=== PATIENT | male | born 1945 | race Caucasian/White ===

== ENCOUNTER 2017-08-15 16:31 | Emergency (ER) | payer OTHER ==
[~2017-08-15] VITALS: Ht 180.3 cm; Wt 81.7 kg
[~2017-08-15 16:31] MED LIST: TESTIM5 GM TD
--- NOTE | 2017-08-16 09:56 | EKG ---
[facility] [address] [facility] [place], [place] [address] Signed Normal sinus rhythm Normal ECG No previous ECGs available Confirmed by JULIO ATKINSON MD ([id number]) on 08/16/2017 9:56:24 AM Electronically Signed By: JULIO ATKINSON MD 08/16/17 0956 PATIENT NAME: ALEJANDRO BOWERS MARAL Electrocardiogram DATE OF : 49 PHYSICIAN: JULIO ATKINSON MD REPORT #: [id number] REPORT IS CONFIDENTIAL AND NOT TO BE RELEASED WITHOUT AUTHORIZATION
== END 2017-08-15 19:26 | disposition home or self-care (01) ==
LOC: ED 16:31
DX: R07.89 Other chest pain (principal); I10 Essential (primary) hypertension; Z88.1 Allergy status to other antibiotic agents; Z91.010 Allergy to peanuts; Z79.899 Other long term (current) drug therapy
CPT/HCPCS: 71020; 80053; 84484; 85025; 93005; 93010; 99284

== ENCOUNTER 2023-10-25 09:18 | Emergency (ER) | payer OTHER, MEDICARE ==
[~2023-10-25] VITALS: Ht 348 cm; Wt 77.1 kg
[~2023-10-25 09:18] MED LIST changes: +ACYCLOVIR800 MG PO; +CEFPODOXIME PR200 MG PO; +DEXEDRINE10 MG PO; +PREDNISONE20 MG PO
--- OUTSIDE RECORDS SUMMARY | 2023-10-25 09:24 | XMS ---
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 Carter has no Care Guidelines for this patient. Ivan VISIT COUNT (12 MO.) 2 TERRELL Gall[facility] Sindi Pickard (Kendy Lrary) TOTAL 3 NOTE: Visits indicate total known visits. ED/C VISIT TRACKING (12 MO.) 10/25/2023 09:20 [facility] [place] TYPE: Emergency COMPLAINT: - ANEMIA [facility]23 09[facility]: Emergency DIAGNOSES: - ST elevation (STEMI) myocardial infarction of unspecified site - Chest Pain - STEMI 10/21/2023 08:09 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 - Essential (primary) hypertension - Other chest pain - Other mcfp (current) drug therapy - ST elevation (STEMI) myocardial infarction involving other coronary artery of inferior wall INPATIENT VISIT TRACKING (12 MO.) 10/21/2023 09:27 [facility] TYPE: Intensive Care DIAGNOSES: - Atherosclerotic heart disease of [place] coronary artery without angina pectoris - prison (current) use of non-steroidal anti-inflammatories (NSAID) - Myelodysplastic syndrome, unspecified - ST elevation (STEMI) myocardial infarction of unspecified site [email or web address]
[2023-10-25] MEDS ORDERED: CLOPIDOGREL75 MG PO (09:44)
[2023-10-25] MEDS ORDERED: LIPITOR40 MG PO (09:45)
[2023-10-25] MEDS ORDERED: PROTONIX40 MG PO (09:45)
[2023-10-25] MEDS ORDERED: ADULT LOW DOSE81 MG PO (09:45)
[2023-10-25] MEDS ORDERED: METOPROLOL SUCC25 MG PO (09:46)
[2023-10-25 09:51] LABS: HEMOGLOBIN 7.7 g/dL (12.0-18.0)
[2023-10-25 09:54] LABS: HEMATOCRIT 25.6 % (35.0-50.0); MCH 23.6 (27-36); MCV 78.6 fl (81-99); PLATELET COUNT 73 K/uL (140-440); RBC 3.26 M/ul (4.3-5.7); RDW 44.1 (10.5-15.0)
[2023-10-25 10:07] LABS: ALBUMIN 3.2 g/dL (3.4-5.0); ALBUMIN/GLOBULIN RATIO 0.86 (1.1-2.4); BILIRUBIN, TOTAL 1.2 ng/dL (0.2-1.0); BUN/CREATININE RATIO 19.65 (6.0-28.6); CALCIUM 8.8 mg/dL (8.5-10.1); CREATININE, SERUM 1.17 mg/dL (0.70-1.30); PROTEIN, TOTAL 6.9 g/dL (6.4-8.2)
[2023-10-25 10:17] LABS: LYMPHOCYTES, MANUAL DIFF 62; MONOCYTES, MANUAL DIFF 2; NEUTROPHILS, MANUAL DIFF 36
[2023-10-25 11:12] LABS: ABO A
[2023-10-25 11:13] LABS: ANTIBODY SCREEN NEGATIVE; RH POSITIVE
[2023-10-25 11:27] LABS: ABO A; RH POSITIVE
[2023-10-25 11:35] VITALS: BP 166/88
[2023-10-25 16:50] LABS: IS CROSSMATCH COMPATIBLE
== END 2023-10-25 11:36 | disposition home or self-care (01) ==
LOC: ED 09:18
PROVIDERS: Emergency Medicine
DX: D46.9 Myelodysplastic syndrome, unspecified (principal); I10 Essential (primary) hypertension; Z88.1 Allergy status to other antibiotic agents; Z91.010 Allergy to peanuts; Z79.899 Other long term (current) drug therapy; Z79.82 Long term (current) use of aspirin; Z79.890 Hormone replacement therapy
CPT/HCPCS: 36415; 80053; 85025; 86850; 86900; 86901; 86922; 99283

== ENCOUNTER 2024-02-19 10:30 | Day surgery (SDC) | payer OTHER ==
[2024-02-17 10:14] VITALS: BP 144/88
[~2024-02-19] VITALS: Ht 177.8 cm; Wt 79.1 kg
[~2024-02-19 10:30] MED LIST changes: +ADULT LOW DOSE81 MG PO; +CLOPIDOGREL75 MG PO; +IBLOOD GLUCOSE TEST STRIP 1 EA TEST VI PRN; +LACTATED RINGER'S 1,000 ML IV SCH; +LIDOCAINE HCL 1% 5 ML SDV INJ ONE; +LIPITOR40 MG PO; +METOPROLOL SUCC25 MG PO; +PROTONIX40 MG PO; +ZOLOFT25 MG PO
[2024-02-19 10:57] LABS: BASOPHILS 0.3 % (0-2); BASOPHILS, ABSOLUTE 0 %; EOSINOPHILS 2.2 % (0-6); EOSINOPHILS, ABSOLUTE 0.1; HEMATOCRIT 53.4 % (35.0-50.0); HEMOGLOBIN 18.1 g/dL (12.0-18.0); LYMPHOCYTES 33.4 % (24-44); LYMPHOCYTES, ABSOLUTE 1.5; MCH 33.4 (27-36); MCHC 33.9 g/dl (30-36); MCV 98.6 fl (81-99); MONOCYTES 9.2 % (0-12); MONOCYTES, ABSOLUTE 0.4; NEUTROPHILS 54.9 % (39-80); NEUTROPHILS, ABSOLUTE 2.5; PLATELET COUNT 51 K/uL (140-440); RBC 5.41 M/ul (4.3-5.7); RDW 17.6 (10.5-15.0)
[2024-02-19 11:03] VITALS: BP 130/75
[2024-02-19 11:12] LABS: ALBUMIN 4.1 g/dL (3.4-5.0); ALBUMIN/GLOBULIN RATIO 1.14 (1.1-2.4); ANION GAP 12.8 (7-21); BILIRUBIN, TOTAL 0.8 ng/dL (0.2-1.0); BUN/CREATININE RATIO 19.49 (6.0-28.6); CALCIUM 9.1 mg/dL (8.5-10.1); CREATININE, SERUM 1.18 mg/dL (0.70-1.30); POTASSIUM 3.8 mmol/L (3.5-5.1); PROTEIN, TOTAL 7.7 g/dL (6.4-8.2)
[2024-02-19] MEDS ORDERED: LIDOCAINE HCL 2% 5 ML SDV ONE (11:55)
[2024-02-19] MEDS ORDERED: propofoL 200 MG/20 ML VIAL ONE (11:55)
[2024-02-19] MEDS ORDERED: fentaNYL citrate 100 MCG/2 ML VIAL ONE (11:55)
--- NOTE | 2024-02-19 12:24 | NUR ---
02/19/24 1224 Karoline Zepeda 1220-PATIENT ARRIVED TO PACU ON 6L MASK RR EVEN. PATIENT REACTIVE TO VERBAL STIMULI REMAINS VERY DROWSY PLACED ON RA. PATIENTS HOB ELEVATED SINUS DEISY HR 50'S DOZES BACK TO SLEEP
[2024-02-19 13:00] VITALS: BP 143/85
--- NOTE | 2024-02-20 07:00 | EKG ---
[facility] [address] [facility] [place] [address] Signed Sinus bradycardia Left axis deviation T wave abnormality, consider inferior ischemia Abnormal ECG When compared with ECG of 21-OCT-2023 08:14, ST no longer elevated in Inferior leads ST more depressed in Lateral leads Inverted T waves have replaced nonspecific T wave abnormality in Lateral leads Confirmed by Juli Pruett ([id number]) on 02/20/2024 7:00:34 AM Electronically Signed By: JULI PRUETT MD 02/20/24 0700 PATIENT NAME: ALEJANDRO BOWERS MARAL Electrocardiogram DATE OF : 49 PHYSICIAN: JULI PRUETT MD REPORT #: [id number] REPORT IS CONFIDENTIAL AND NOT TO BE RELEASED WITHOUT AUTHORIZATION
[2024-02-20 10:16] LABS: HAPTOGLOBIN 51 mg/dL (30-200)
--- NOTE | 2024-03-11 18:24 | PATH ---
[facility] [address] [facility] [place], [place] [address] Signed THIS IS AN ADDENDUM REPORT SPECIMEN(S): A BONE MARROW - CORE SPECIMEN(S): B BONE MARROW - ASPIRATION SPECIMEN(S): C COMP FLOW CYTOMETRY, BM EDTA CLINICAL HISTORY: 78-year-old male with MDS diagnosed 06/27/2023, status post four cycles azacitidine assess for response. Also history of low-grade BCL and WAHA. DIAGNOSIS SUMMARY: Peripheral blood - Thrombocytopenia with mild erythrocytosis. - No circulating blasts are identified. Bone marrow biopsy and aspiration: - Normocellular marrow, 20%, with less than 1% blasts. - Trilineage hematopoiesis with no significant dyspoiesis. - Mild megakaryocytic hypoplasia. - Decreased marrow iron stores with no ring sideroblasts. - See diagnostic comment. 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 He is status post treatment for MDS. No significant dyspoiesis is noted in this current specimen. Megakaryocytes are decreased in number. This might be treatment related. The history of ring sideroblasts (RS) is noted. No RS are noted in the specimen. These contradictory findings are confusing. No prior bone marrow is present in the [employer] database. A FISH panel for MDS is normal with no mutations. Pending studies at the time of this report include chromosome analysis, and a NGS panel for MDS. A reported history of unspecified low grade B-cell lymphoma is noted. No clonal populations are identified by flow cytometry. The immunohistochemistry staining pattern is unremarkable. No B-cell lymphoproliferative disorder is noted. JLP HISTORICAL SUMMARY: 78 yo male with no prior bone marrow exam reports in the [employer] database. The clinical history notes a 2022 diagnosis of MDS with multilineage dyspoiesis PATIENT NAME: ALEJANDRO BOWERS PATHOLOGY DATE OF : 49 REPORT #: [id number] PHYSICIAN: CRIS PATHOLOGY PCP: CHERYL CELIS MD REPORT IS CONFIDENTIAL AND NOT TO BE RELEASED WITHOUT AUTHORIZATION [facility] [address] [place], [place] [address] Signed treated with azacitidine. The last dose of azacitidine is reported as Jan 06, 2024. By report, cytogenetics noted a del 20q, and trisomy 8. By report, 10% of ring sideroblasts were noted. NGS mutation studies were reported for USAF1 mutation. 1.4% myeloblasts were noted by morphology (by report). In addition, there is a reported history of low grade B-cell lymphoma, type not specified by the clinical history. The clinician requests an assessment for response which is challenging without the prior bone marrow slides. He reportedly has taken Prednisone for WAHA. It is unclear whether he is still taking the prednisone. PERIPHERAL BLOOD: HEMOGRAM (02/19/2024): WBC 4.6 K/ul, RBC 5.41 M/ul, HGB 18.1 g/dl, HCT 53.4%, MCV 98.6 fl, MCH 33.4 pg, MCHC 33.9 g/dl, RDW 17.6%, PLT 51 K/ul, MPV 8.4 fl. AUTOMATED DIFFERENTIAL COUNT: Neutrophils 54.9%, lymphocytes 33.4%, monocytes 9.2%, eosinophils 2.2%, basophils 0.3%. The red blood cells are normocytic and normochromic with minimal aniso-poikilocytosis. The neutrophils are unremarkable. Lymphocytes are composed of small mature appearing forms. Platelets are decreased in number with no platelet clumping or RBC microangiopathic effect identified. No blasts are identified. BONE MARROW: ASPIRATE SMEARS/TOUCH IMPRINT: The aspirate smears are adequate for evaluation. Scattered erythroid precursors show adequate maturation with less than 2% dyspoietic cells. The myeloid precursors show full maturation with unremarkable morphology. There is no increase in blasts. Megakaryocytes are identified with a normal morphology. BONE MARROW DIFFERENTIAL COUNT (300 cells): Blasts less than 1%. promyelocytes 1%, myelocytes 5%, metamyelocytes/bands/segs 23%, erythroid precursors 32%, lymphocytes 30%, monocytes 6%, eosinophils 3%, plasma cells less than 1%. M:E ratio: 1:1 BONE MARROW CORE BIOPSY/ASPIRATE CLOT/CELL BLOCK: The aspirate clot section is mostly blood with scant small marrow spicules, sub-optimal for evaluation. The core biopsy is adequate for evaluation. The core biopsy demonstrates unremarkable trabecular bone. The cellularity is variable. The small focal marrow spicules in the clot section have a cellularity of 70%, but evaluation is limited by limited small marrow spicules. The core biopsy is a better specimen for analysis and has a lower cellularity, estimated at 20%. The erythroid precursors are within normal limits with essentially PATIENT NAME: ALEJANDRO BOWERS PATHOLOGY DATE OF : 49 REPORT #: [id number] PHYSICIAN: CRIS PATHOLOGY PCP: CHERYL CELIS MD REPORT IS CONFIDENTIAL AND NOT TO BE RELEASED WITHOUT AUTHORIZATION [address] [address] Signed unremarkable maturation. The myeloid precursors are unremarkable with no significant dyspoiesis. Blasts are not increased. Megakaryocytes appear decreased in number with a normal morphology. No granulomas, atypical lymphoid aggregates or foreign malignant cells are detected. SPECIAL STAINS (with adequate controls): - iron (aspirate smear): Decreased marrow iron stores. No ring sideroblasts are identified. - iron (cell block): Negative for iron by Prussian Blue stain. - PAS (block A1): Mildly decreased megakaryocytes with a normal morphology. IMMUNOHISTOCHEMISTRY STAINS (performed on block A1 with adequate controls). - CD34: Less than 1% - CD117: 1% - CD71: 35% - PAX5: 1% - CD3: 5%, no atypical morphology. FLOW CYTOMETRY: Bone marrow, flow cytometry: - No diagnostic abnormal populations are identified by flow cytometry. - See comment. COMMENT: While no diagnostic hematopoietic abnormality is detected in this study, correlation with clinical, morphologic, and genetic findings is recommended for full interpretation and to assess for disease processes not fully examined by flow cytometry analysis, including myelodysplastic syndrome or myeloproliferative neoplasm. FLOW CYTOMETRY ANALYSIS: FLOW DIFFERENTIAL (% Total CD45 vs. SSC gating): Myeloid 82%; Lymphoid 11%; Monocyte 3%; Dim CD45/Blast: 0.1%. Cell Count: 5.8 x 10*3/uL. POPULATION ANALYSIS: BLASTS: Analysis of the dim CD45 gate demonstrates 0.1% myeloblasts by CD34/CD117 and 0.2% hematogones. LYMPHOID CELLS: The lymphocyte gate comprises 11% of total events and includes 81% T-cells with a CD4:CD8 ratio of 2.6:1 and normal boudreaux T-cell antigen expression. 11% of lymphocytes are polyclonal B-cells with a kappa:lambda ratio of 2.2:1. The remainders are NK-cells. MYELOID CELLS: The myeloid population comprises 82% of the total events. No aberrant immunophenotypic expression is detected. MONOCYTES: The monocyte population comprises 3% of the total events. Monocytes PATIENT NAME: ALEJANDRO BOWERS PATHOLOGY DATE OF : 49 REPORT #: [id number] PHYSICIAN: CRIS PATHOLOGY PCP: CHERYL CELIS MD REPORT IS CONFIDENTIAL AND NOT TO BE RELEASED WITHOUT AUTHORIZATION [facility] [address] [facility] [place], [place] [address] Signed are not increased. No aberrant immunophenotypic expression is detected. PLASMA CELLS: 0.2% plasma cells are detected in the screening gate neg-dimCD45/CD38. Plasma cells are CD45 dim and positive for CD19. ANTIBODIES USED: KAPPA, LAMBDA, CD20, CD10, CD19, CD23, CD38, CD16, CD56, CD8, CD5, CD2, CD4, CD7, CD3, CD14, CD33, CD13, HLADR, CD34, CD117, CD15, CD45: TOTAL ANTIBODIES USED: 23. DKW FINAL DIAGNOSIS PERFORMED BY: Dion Glez MD, Feb 21 2024 1:58PM CYTOGENETICS: Insufficient specimen was submitted for chromosome analysis. FISH ANALYSIS: MDS FISH (fluorescence in situ hybridization) RESULT: Not Detected INTERPRETATION: 5q deletion/monosomy 5: Not detected. 7q deletion/monosomy 7: Not detected. Trisomy 8: Not detected. 20q deletion: Not detected. KMT2A (MLL) rearrangement: Not detected. Fluorescence in situ hybridization (FISH) analysis was performed using a specific set of probes for myelodysplastic syndrome (MDS). Counts for all probe signals were within the normal reference range. No evidence of deletion 5q, 7q or 20q or monosomy 5 or 7, trisomy 8, or KMT2A rearrangement was detected. This finding represents a NORMAL result. This analysis is limited to abnormalities detectable by the specific probes included in the study. FISH should be interpreted within the context of a full cytogenetic analysis and hematologic evaluation. ISCN: Probe Set Detail: EGR1/B6L816: nuc parminder 5p15.31(S8O654c6), 5q31(EGR1x2)[200] D3O232/CEP7: nuc parminder 7q31(F8B998v7),7q11.2q11.21(CEP7x2)[200] CEP8: nuc parmindre 8q11.1q11.21(CEP8x2)[300] F84X896: nuc parminder 20q12(V33K434m5)[300] KMT2A (MLL): nuc parminder 11q23(5'KMT2A,3'KMT2A)x2(5'KMT2A con 3'XOL2Zu6)[200] References: Joelle Chand (2013) Hematology Am Soc Hematol Educ Program 2013:504-10. PMID [id number] Rena Hernandez and Meg Lau, (2011) Hematology 16(3):131-8. PMID: 87742016 FISH Analysis Summary: PATIENT NAME: ALEJANDRO BOWERS PATHOLOGY DATE OF : 49 REPORT #: [id number] PHYSICIAN: CRIS PATHOLOGY PCP: CHERYL CELIS MD REPORT IS CONFIDENTIAL AND NOT TO BE RELEASED WITHOUT AUTHORIZATION [address] [place], [place] [address] Signed Nuclei Scored: 200-300 Scoring Method: Manual; CPT Code 74205 Number of Probe units: 4 Multiplex Cells analyzed: Interphase Probe sets: Chrom 8: ILYA 8, Chrom 20: K10O486, Chrom 5: EGR1, Chrom 5: R4V354, Chrom 7: CEN7, Chrom 7: Q9E3419, Chrom 11: KMT2A (MLL) 3', Chrom 11: KMT2A (MLL) 5 MOLECULAR / PCR: A NeoTYPE [facility] test for NGS CMML/MDS is pending. GROSS DESCRIPTION: Two specimens are received in two containers. A. The specimen, labeled and designated "Gawf, bone core," is received in formalin and consists of one bautista trabecular bone core fragment(s) measuring up to 1.5 cm in greatest dimension. The specimen is submitted in A1, following decalcification in Immunocal for 1.5 hours. B. The specimen, labeled and designated "Gawf, clot," is received in formalin and consists of a 1.8 x 1.2 x 0.4 cm aggregate of blood clot. It is submitted in cassette B1. TAP (under the direct supervision of a pathologist) The Gross Description was prepared using a voice recognition system. The report was reviewed for accuracy; however, sound-alike word errors, addition and/or deletions may occur. If there is any question about this report, please contact Client Services. ADDITIONAL NOTES: Immunohistochemical and/or in situ hybridization studies if performed in this case included appropriate positive controls that reacted as expected. This test was developed and its performance characteristics determined by [facility] It has not been cleared or approved by the U.S. Food and Drug Administration. The FDA has determined that such clearance or approval is not necessary. This test is used for clinical purposes. It should not be regarded as investigational or for research. [facility] is certified under the Clinical Laboratory Improvement Amendments of 1988 (CLIA) as qualified to perform high complexity clinical laboratory testing. In this case, certain antibodies were performed by both immunohistochemistry and flow cytometry analysis because flow cytometry analysis did not fully explain all the light microscopic findings. Immunohistochemistry aided in the analysis. Both methods are deemed medically PATIENT NAME: ALEJANDRO BOWERS PATHOLOGY DATE OF : 49 REPORT #: [id number] PHYSICIAN: CRIS JOHN PCP: CHERYL CELIS MD REPORT IS CONFIDENTIAL AND NOT TO BE RELEASED WITHOUT AUTHORIZATION [facility] [address] [place], [place] [address] Signed necessary in this case. This test was developed and its performance characteristics determined by [facility] [employer] It has not been cleared or approved by the US Food and Drug Administration. The O[employer]o DNA probe vendor for this study was [employer]. This test was developed and its performance characteristics determined by [facility] It has not been cleared or approved by the US Food and Drug Administration. The FDA does not require this test to go through premarket FDA review. This test is used for clinical purposes. It should not be regarded as investigational or for research. This laboratory is certified under the Clinical Laboratory Improvement Amendments (CLIA) as qualified to perform high complexity clinical laboratory testing. PERFORMING LABORATORY: The technical preparation was performed by [facility], [address] [place] [address] (CLIA#: [id number]). Professional interpretation was performed by [facility], [address] [place] [phone] (CLIA#: [id number]). The technical component of the FISH testing was performed by [facility] [address] [place] [address] (CLIA#: [id number]). Professional interpretation was performed by [facility] [address] [address] (CLIA#: [id number]). FINAL DIAGNOSIS PERFORMED BY: Phan Bear MD. MPH, Pathologist Feb 27 2024 2:10PM Technical preparation was performed by [facility] [address] [place] [address] (CLIA#: [id number]). Professional interpretation was performed by [facility], [address] [place] [phone] (CLIA#: [id number]). IMAGES: A: [id number] A: [id number] REASON FOR ADDENDUM: To report results of additional testing. Bone marrow, cytogenetic analysis: PATIENT NAME: ALEJANDRO BOWERS PATHOLOGY DATE OF : 49 REPORT #: [id number] PHYSICIAN: CRIS JOHN PCP: CHERYL CELIS MD REPORT IS CONFIDENTIAL AND NOT TO BE RELEASED WITHOUT AUTHORIZATION [address] [address] Signed Karyotype: 46,XY[20] Interpretation: NORMAL MALE KARYOTYPE Cytogenetic analysis shows a normal male karyotype in all cells analyzed. Comments: Standard cytogenetic analysis may not detect subtle submicroscopic rearrangements and may not include metaphases from abnormal cell populations with low mitotic rates or present in low levels. Case analyzed and report prepared by Estephania Boucher, Ph.D., [facility] ([id number]). Test Detail: Metaphases Counted: 20 Metaphases Analyzed: 20 Metaphases Karyotyped: 2 Culture Type: 48EB, 72IL2/DSP30 Banding Technique: GTG Banding Resolution: 400 CPT Codes: 34953, 94140*, 58775, 77107 *Professional interpretation service generally billed directly to carriers by [facility]. Two cultures were performed; stimulated and non-stimulated. The Accessioning Component and Technical Component Processing of this test was completed at [facility] [address] / [address] / [phone] / CLIA # [id number] / Seed Packer(s): Sebastian Mccauley M.D. The Technical Component Analysis of this test was completed at [facility] , [address] [place], [place] / [address] / [phone] / CLIA # [id number] / Seed Packer(s): Kamilla Patricia MD. The Professional Component of this test was completed at [facility], [address] [place] [address], [address], [place] / [address] / [phone] / CLIA # [id number] / Seed Packer(s): Anitha Zapata M.D. Analysis Code(s): [id number] (Accession/CaseNo: [id number]) The performance characteristics of this test have been determined by the performing laboratory. This test has not been approved by the FDA. The FDA has determined such clearance or approval is not necessary. This laboratory is CLIA certified to perform high complexity clinical testing. Images that may be included within this report are patient financial representative of the patient but not all testing in its entirety and should not be used to render a result. The CPT codes provided with our test descriptions are based on AMA guidelines PATIENT NAME: ALEJANDRO BOWERS PATHOLOGY DATE OF : 49 REPORT #: [id number] PHYSICIAN: CRIS PATHOLOGY PCP: CHERYL CELIS MD REPORT IS CONFIDENTIAL AND NOT TO BE RELEASED WITHOUT AUTHORIZATION [facility] [address] [place], [place] [address] Signed and are for informational purposes only. Correct CPT coding is the sole responsibility of the billing constitution party. Please direct any questions regarding coding to the payer being billed. Bone marrow, NeoTYPE Analysis MDS/CMML Profile: Results Summary: - SNVs/Indels: STAG2 A204Vut*9 - Pertinent Negatives: NO alterations detected in the following genes: FLT3, IDH1, IDH2, NPM1, TP53 Interpretation: - STAG2 mutations can be seen in various myeloid neoplasms, and are associated with a poor prognosis in MDS, AML, and MPN. See full list of genes tested in [employer] Evaluated section at end of report. Abbreviations: SNVs=single nucleotide variants, Indels=insertions/deletions. The Accessioning Component, Technical Component Processing, Analysis and Professional Component of this test was completed at [facility] [place], [address] [place] [address], [place] / [address] / [phone] / CLIA # [id number] / Seed Packer(s): Sebastian Mccauley M.D. Interpretation Code(s): [id number] (Accession / CaseNo: [id number] / [id number]) The performance characteristics of this test have been determined by the performing laboratory. This test has not been approved by the FDA. The FDA has determined such clearance or approval is not necessary. This laboratory is CLIA certified to perform high complexity clinical testing. Images that may be included within this report are patient financial representative of the patient but not all testing in its entirety and should not be used to render a result. ADDENDUM NOTE The positive mutation in STAG2 supports the presence of myelodysplasia. [facility] Diagnostician: Dion Glez MD Pathologist Electronically Signed 03/11/2024 PATIENT NAME: ALEJANDRO BOWERS PATHOLOGY DATE OF : 49 REPORT #: [id number] PHYSICIAN: CRIS PATHOLOGY PCP: CHERYL CELIS MD REPORT IS CONFIDENTIAL AND NOT TO BE RELEASED WITHOUT AUTHORIZATION [address] [address] Signed Copies: ~ PATIENT NAME: ALEJANDRO BOWERS PATHOLOGY DATE OF : 49 REPORT #: [id number] PHYSICIAN: CRIS JOHN PCP: CHERYL CELIS MD REPORT IS CONFIDENTIAL AND NOT TO BE RELEASED WITHOUT AUTHORIZATION
== END 2024-02-19 13:10 | disposition home or self-care (01) ==
LOC: OPS 10:30 → DS 10:30 → OPS 12:00 → DS 12:00 → OPS 13:10
PROVIDERS: ATTEND Specialist
PROC: 079T3ZX Drainage of Bone Marrow, Percutaneous Approach, Diagnostic (ICD-10-PCS; 2024-02-19)
PROC: 07DR3ZX Extraction of Iliac Bone Marrow, Percutaneous Approach, Diagnostic (ICD-10-PCS; principal; 2024-02-19 12:00)
DX: D46.9 Myelodysplastic syndrome, unspecified (principal); D75.839 Thrombocytosis, unspecified; Z88.1 Allergy status to other antibiotic agents
CPT/HCPCS: 01112; 36415; 80053; 83010; 83615; 85025; 85045; 93005; 93010; J2001; J2704; J3010; J7121

== ENCOUNTER 2024-06-23 14:51 | Emergency (ER) | payer OTHER ==
[~2024-06-23] VITALS: Ht 177.8 cm; Wt 82.0 kg
[~2024-06-23 14:51] MED LIST changes: -IBLOOD GLUCOSE TEST STRIP 1 EA TEST VI PRN; -LACTATED RINGER'S 1,000 ML IV SCH; -LIDOCAINE HCL 1% 5 ML SDV INJ ONE
[2024-06-23] MEDS ORDERED: HYDROCORTISONE5 MG PO (15:06)
[2024-06-23 15:25] LABS: BASOPHILS 0.2 % (0-2); EOSINOPHILS 1.2 % (0-6); HEMATOCRIT 29.2 % (35.0-50.0); HEMOGLOBIN 10.1 g/dL (12.0-18.0); MCHC 34.8 g/dl (30-36); MCV 103.5 fl (81-99); MONOCYTES 10.6 % (0-12); RBC 2.82 M/ul (4.3-5.7); RDW 17.1 (10.5-15.0)
[2024-06-23 15:43] LABS: PLATELET COUNT 36 K/uL (140-440)
[2024-06-23 15:47] LABS: ALBUMIN 3.4 g/dL (3.4-5.0); ANION GAP 13.1 (7-21); BILIRUBIN, TOTAL 0.7 ng/dL (0.2-1.0); BUN/CREATININE RATIO 26.89 (6.0-28.6); CALCIUM 8.7 mg/dL (8.5-10.1); CREATININE, SERUM 1.19 mg/dL (0.70-1.30); POTASSIUM 4.1 mmol/L (3.5-5.1); PROTEIN, TOTAL 6.8 g/dL (6.4-8.2)
[2024-06-23 17:30] VITALS: BP 135/71
--- NOTE | 2024-06-23 22:13 | EKG ---
[facility] [address] [place] [address] Signed Normal sinus rhythm with sinus arrhythmia T wave abnormality, consider inferior ischemia Abnormal ECG When compared with ECG of 19-FEB-2024 10:45, Vent. rate has increased BY 30 BPM Confirmed by Micah Farfan MD () on 06/23/2024 10:13:06 PM Electronically Signed By: MICAH FARFAN MD 06/23/242212 PATIENT NAME: ALEJANDRO BOWERS MARAL Electrocardiogram DATE OF : 49 PHYSICIAN: MICAH FARFAN MD REPORT #: [id number] REPORT IS CONFIDENTIAL AND NOT TO BE RELEASED WITHOUT AUTHORIZATION
== END 2024-06-23 17:30 | disposition home or self-care (01) ==
LOC: ED 14:51
PROVIDERS: Emergency Medicine
DX: R42 Dizziness and giddiness (principal); D61.818 Other pancytopenia; I10 Essential (primary) hypertension; Z91.010 Allergy to peanuts; Z88.1 Allergy status to other antibiotic agents; Z79.899 Other long term (current) drug therapy
CPT/HCPCS: 36415; 80053; 83735; 84484; 85025; 85060; 93005; 93010; 99284

== ENCOUNTER 2024-09-09 10:15 | Day surgery (SDC) | payer OTHER ==
[~2024-09-09] VITALS: Ht 177.8 cm; Wt 80.0 kg
[~2024-09-09 10:15] MED LIST changes: +HYDROCORTISONE5 MG PO; +IBLOOD GLUCOSE TEST STRIP 1 EA TEST VI PRN; +LACTATED RINGER'S 1,000 ML IV SCH; +LIDOCAINE HCL 1% 5 ML SDV INJ ONE; +PLAVIX75 MG PO
[2024-09-09 10:52] VITALS: BP 138/75
[2024-09-09] MEDS ORDERED: ACYCLOVIR800 MG PO (11:01)
[2024-09-09] MEDS ORDERED: IBLOOD GLUCOSE TEST STRIP 1 EA TEST VI PRN (11:15)
[2024-09-09] MEDS ORDERED: NALOXONE HCL 0.4 MG SYR IV PRN (11:15)
[2024-09-09] MEDS ORDERED: ondansetron HCL 4 MG/2 ML VIAL IV PRN (11:15)
[2024-09-09] MEDS ORDERED: fentaNYL citrate 50 MCG/ML SDV IV PRN (11:15)
[2024-09-09] MEDS ORDERED: LIDOCAINE HCL 2% 5 ML SDV ONE (11:24)
[2024-09-09] MEDS ORDERED: propofoL 200 MG/20 ML VIAL ONE (11:24)
[2024-09-09 11:26] LABS: HEMATOCRIT 25.8 % (35.0-50.0); HEMOGLOBIN 8.7 g/dL (12.0-18.0); MCH 34.3 (27-36); MCHC 33.7 g/dl (30-36); MCV 101.8 fl (81-99); RBC 2.54 M/ul (4.3-5.7)
[2024-09-09 11:49] LABS: LYMPHOCYTES, MANUAL DIFF 82; MONOCYTES, MANUAL DIFF 8; NEUTROPHILS, MANUAL DIFF 10
[2024-09-09 11:59] LABS: BASOPHILS, ABSOLUTE 0 %; EOSINOPHILS, ABSOLUTE 0; LYMPHOCYTES, ABSOLUTE 1.1; MONOCYTES, ABSOLUTE 0.1; NEUTROPHILS, ABSOLUTE 0.1
[2024-09-09 12:10] LABS: PLATELET COUNT 75 K/uL (140-440)
--- NOTE | 2024-09-09 12:35 | NUR ---
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 PT PRONE, CHEST ON PILLOWS. RESP EVEN UNLABORED. DOES NOT RESPOND TO VERBAL COMMANDS AT THIS TIME.
[2024-09-09 13:13] VITALS: BP 119/64
--- NOTE | 2024-09-22 19:50 | PATH ---
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 - Absolute neutrophil count 200/ul Bone marrow biopsy and aspiration: - Hypercellular marrow, 90%, with 5% myeloblasts. - Trilineage dyspoiesis with 15% ring sideroblasts. 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 - Abnormal NGS study with mutation of U2AF 1 - Overall findings are supportive of myelodysplasia with multilineage dysplasia with excess blasts (5%) and with ring sideroblasts. - See diagnostic comment. DIAGNOSTIC COMMENT: Findings support a high grade myelodysplasia. Trilineage dysplasia with ring sideroblasts and 5% marrow blasts upgrade the process to myelodysplasia with excess blasts type 2 (despite the 5% marrow blasts). The history of marginal zone lymphoma is noted. No lymphoma is noted in this marrow. Testing for B12/folate/copper deficiencies is suggested if not previously performed. HISTORICAL SUMMARY: See historical summary. There is a reported history of [id number] 10% ring sideroblasts. The most recent bone marrow demonstrated a hypercellular marrow of 70% with less than 1% blasts, and with a NGS study demonstrating a STAG2 mutation. 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 She is status post treatment. PERIPHERAL BLOOD: HEMOGRAM (09/09/2024): WBC 1.4 K/ul, RBC 2.54 M/ul, HGB 8.7 g/dl, HCT 25.8%, MCV 101.8 fl, MCH 34.3 pg, MCHC 33.7 g/dl, RDW 23.0%, PLT 75 K/ul. Absolute neutrophil count 200/ul. PATIENT NAME: ALEJANDRO BOWERS PATHOLOGY DATE OF : 49 REPORT #: [id number] PHYSICIAN: CRIS JOHN PCP: CHERYL CELIS MD REPORT IS CONFIDENTIAL AND NOT TO BE RELEASED WITHOUT AUTHORIZATION [facility] [address] [place], [place] [address] Signed MANUAL DIFFERENTIAL COUNT: Neutrophils 10%, lymphocytes 82%, monocytes 8%, eosinophils 0%, basophils 0%. The red blood cells are macrocytic and hyperchromic with marked aniso-poikilocytosis. RBC teardrop cells and macrocytes are noted. The neutrophils are markedly reduced in numbers with no significant morphologic dyspoiesis. Lymphocytes are composed of small mature appearing forms. Platelets are decreased in number with no platelet clumping or RBC microangiopathic effect identified. No blasts are identified. BONE MARROW: ASPIRATE SMEARS/TOUCH IMPRINT: The aspirate smears are adequate for evaluation. Scattered erythroid precursors are markedly increased in numbers and exhibit mild dyspoiesis. The myeloid precursors have a left maturational shift with decreased neutrophils. Blasts are increased Megakaryocytes are identified with an abnormal morphology. BONE MARROW DIFFERENTIAL COUNT (300 cells): Blasts 5%. promyelocytes 1%, myelocytes 11%, metamyelocytes/bands/segs 8%, erythroid precursors 60%, lymphocytes 9%, monocytes 5%, eosinophils 2%, plasma cells less than 1%. M:E ratio: Inverted with erythroid predominance. BONE MARROW CORE BIOPSY/ASPIRATE CLOT/CELL BLOCK: The aspirate clot section and the core biopsy are adequate for evaluation. The core biopsy demonstrates unremarkable trabecular bone. The cellularity is increased for age, estimated at 90%. The erythroid precursors are increased in numbers with focal dyspoiesis. The myeloid precursors are decreased in numbers with a left maturational shift and with decreased neutrophil production. Blasts are increased, approximately 5%. Megakaryocytes appear increased in number with dysplastic morphology. Intermediate to large megakaryocytes with nuclear monolobation are noted. No granulomas, atypical lymphoid aggregates or foreign malignant cells are detected. SPECIAL STAINS (with adequate controls): - iron (aspirate smear): increased iron stores with 15% ring sideroblasts. - iron (cell block): Negative by Prussian Blue stain - PAS (block A1): Increased abnormal megakaryocytes. Monolobated atypical megakaryocytes are present. IMMUNOHISTOCHEMISTRY STAINS (performed on block A1 with adequate controls). - CD34: 1% - CD117: 7% - PAX5: less than 1% - CD3: 5% PATIENT NAME: ALEJANDRO BOWERS PATHOLOGY DATE OF : 49 REPORT #: [id number] PHYSICIAN: CRIS JOHN PCP: CHERYL CELIS MD REPORT IS CONFIDENTIAL AND NOT TO BE RELEASED WITHOUT AUTHORIZATION [address] [address] Signed - CD71: 60% FLOW CYTOMETRY: Bone marrow, flow cytometry: 4.2% myeloblasts with mild aberrant expression. No lymphoid clonality detected. See comment. COMMENT: 4.2% myeloblasts are identified with mild aberrant expression of CD15. The majority of gated lymphocytes are T-cells with a normal marking pattern. The B-cells are essentially absent. No plasma cell clonality is detected. The myeloid cells are mildly decreased with no aberrant maturation. Correlation with bone marrow findings is required. FLOW CYTOMETRY ANALYSIS: FLOW DIFFERENTIAL (% Total CD45 vs. SSC gating): Myeloid 34%; Lymphoid 26%; Monocyte 3%; Dim CD45/Blast: 4.2%. Cell Count: 3.5 x 10*3/uL. POPULATION ANALYSIS: BLASTS: Analysis of the dim CD45 gate demonstrates 4.2% myeloblasts by CD34/CD117 with aberrant expression of CD15 DIM (minor subset). 0.1 % hematogones are also detected. LYMPHOID CELLS: The lymphocyte gate comprises 26% of total events and includes 87% T-cells with a CD4:CD8 ratio of 1.2:1 and normal boudreaux T-cell antigen expression. B-cells are essentially absent. The remainders are NK-cells. MYELOID CELLS: The myeloid population comprises 34% of the total events. No aberrant immunophenotypic expression is detected. MONOCYTES: The monocyte population comprises 3% of the total events. Monocytes are not increased. Increased CD15 expression is observed. PLASMA CELLS: 0.3% plasma cells are detected in the screening gate neg-dimCD45/CD38. Plasma cells are CD45 dim and positive for CD19. ANTIBODIES USED: KAPPA, LAMBDA, CD20, CD10, CD19, CD23, CD38, CD16, CD56, CD8, CD5, CD2, CD4, CD7, CD3, CD14, CD33, CD13, HLADR, CD34, CD117, CD15, CD45: TOTAL ANTIBODIES USED: 23. KEW/ FINAL DIAGNOSIS PERFORMED BY: Dion Glez MD, Sep 11 2024 2:49PM CYTOGENETICS: Bone marrow, Cytogenetics: Karyotype: 47,XY,+8,del(20)(q11.2q13.1)[19]/46,XY[1] PATIENT NAME: ALEJANDRO BOWERS PATHOLOGY DATE OF : 49 REPORT #: [id number] PHYSICIAN: CRIS JOHN PCP: CHERYL CELIS MD REPORT IS CONFIDENTIAL AND NOT TO BE RELEASED WITHOUT AUTHORIZATION [facility] [address] [place], [place] [address] Signed Interpretation: ABNORMAL MALE KARYOTYPE TRISOMY 8 AND DELETION CHROMOSOME 20q INTERVAL CHANGE Cytogenetic analysis shows an abnormal male karyotype. Nineteen cells show a gain of chromosome 8 (trisomy 8) and a deletion of chromosome 20q. One remaining cell shows a normal karyotype. Gain of chromosome 8 and deletion chromosome 20q are myeloid-related abnormalities. The clinical significance of these findings is dependent upon morphological and other studies. At a minimum these abnormalities indicate the presence of clonal hematopoiesis (CH), and can be seen in CHIP (no cytopenia), CCUS (has cytopenia) or could also be seen in MDS, MDS/MPN or AML. Correlation with other clinical and laboratory findings is indicated to determine the specific prognosis. Recommendation: Monitoring by cytogenetics, FISH and/or molecular studies is recommended. Comments: INTERVAL CHANGE: A normal karyotype was observed in a previous specimen. Please refer to [facility] Results (below). Standard cytogenetic analysis may not detect subtle submicroscopic rearrangements and may not include metaphases from abnormal cell populations with low mitotic rates or present in low levels. Test Detail: Metaphases Counted: 20 Metaphases Analyzed: 20 Metaphases Karyotyped: 3 Culture Type: 48EB, 72IL2/DSP30 Banding Technique: GTG Banding Resolution: 375 CPT Codes: 40229, 32682, 22933*, 23414, 26350 *Professional interpretation service generally billed directly to carriers by [employer]. Two cultures were performed; stimulated and non-stimulated. The Accessioning Component and Technical Component Processing of this test was completed at [facility] [address] / [address] / [phone] / CLIA # [id number] / Field Account Director(s): Sebastian Mccauley M.D. The Technical Component Analysis of this test was completed at [facility] [address] / [address] / [phone] / CLIA # [id number] / Field Account Director(s): Anitha Zapata M.D. The Professional Component of this test was completed at [facility] , [address] [place] [address] / [phone] / PATIENT NAME: ALEJANDRO BOWERS PATHOLOGY DATE OF : 49 REPORT #: [id number] PHYSICIAN: CRIS JOHN PCP: CHERYL CELIS MD REPORT IS CONFIDENTIAL AND NOT TO BE RELEASED WITHOUT AUTHORIZATION [facility] [address] [place], [place] [address] Signed [phone] / CLIA # [id number] / Field Account Director(s): Kamilla Patricia MD and [employer] [facility], [address] [place] [address], [facility] [address], [place] / [address] / [phone] / CLIA # [id number] / Field Account Director(s): Anitha Zapata M.D. Analysis Code(s): [id number], [id number] Interpretation Code(s): [id number] The performance characteristics of this test have been determined by the performing laboratory. This test has not been approved by the FDA. The FDA has determined such clearance or approval is not necessary. This laboratory is CLIA certified to perform high complexity clinical testing. (Accession/CaseNo: [id number]) [employer] Results captures historical data from previous patient reports. These results may not have been reviewed by the doctor performing the professional interpretation for this report. Images that may be included within this report are representative personal service of the patient but not all testing in its entirety and should not be used to render a result. The CPT codes provided with our test descriptions are based on AMA guidelines and are for informational purposes only. Correct CPT coding is the sole responsibility of the billing democrat. Please direct any questions regarding coding to the payer being billed. FISH ANALYSIS: FISH (fluorescence in situ hybridization) RESULT: Detected INTERPRETATION: 5q deletion/monosomy 5: Not detected. 7q deletion/monosomy 7: Not detected. Trisomy 8: Detected. 20q deletion: Detected. KMT2A (MLL) rearrangement: Not detected. Fluorescence in situ hybridization (FISH) analysis was performed using a myelodysplastic syndrome specific set of probes. This panel detected an abnormal pattern consistent with trisomy of chromosomes 8 (3G, 60.5%, normal < 2.3%) and a 20q12 deletion (1R, 70.5%, normal < 9%). There is no evidence of deletion 5q, or 7q, or monosomy 5 or 7 or KMT2A rearrangement. Deletion of 20q is a recurrent finding in myeloid malignancies such as MDS and AML and myeloproliferative disorders, but it is not alone sufficient for the diagnosis of MDS without morphologic dysplasia. Trisomy 8 is one of the most common numerical alterations in myeloid PATIENT NAME: ALEJANDRO BOWERS PATHOLOGY DATE OF : 49 REPORT #: [id number] PHYSICIAN: CRIS JOHN PCP: CHERYL CELIS MD REPORT IS CONFIDENTIAL AND NOT TO BE RELEASED WITHOUT AUTHORIZATION [facility] [address] [place], [place] [address] Signed disorders. It has been reported in AML (10-15%), MDS (15-20%), chronic myelogenous leukemia (CML) (10-25%) and myeloproliferative neoplasms (10-20%). Isolated trisomy 8 (+8) is associated with an intermediate prognosis and is more favorable than -7 and 7q- but less favorable than isolated -5, 5q- and 20q-. As a sole cytogenetic abnormality in the absence of morphologic criteria, gain of chromosome 8 is not considered definitive evidence of MDS. This analysis is limited to abnormalities detectable by the specific probes included in the study. FISH should be interpreted within the context of a full cytogenetic analysis and hematologic evaluation. ISCN: Probe Set Detail: EGR1/C3Q556: nuc parminder 5p15.31(N5K266a6),5q31(EGR1x2)[200] M9Z130/CEP7: nuc parminder 7q31(D5N602k5),7q11.2q11.21(CEP7x2)[200] CEP8: nuc parminder 8q11.1q11.21(CEP8x3)[121/200] O67C008: nuc parminder 20q12(E49E475z2)[141/200] KMT2A (MLL): nuc parminder 11q23(5'KMT2A,3'KMT2A)x2(5'KMT2A con 3'GOV3Bc4)[200] References: Joelle Chand (2013) Hematology Am Soc Hematol Educ Program 2013:504-10. PMID [id number] Rena Hernandez and Meg Lau (2011) Hematology 16(3):131-8. PMID: [id number] FISH Analysis Summary: Nuclei Scored: 200 Scoring Method: Manual; CPT Code 27373 Number of Probe units: 4 Multiplex Cells analyzed: Interphase Probe sets: Chrom 8: ILYA 8, Chrom 20: E68E555, Chrom 5: EGR1, Chrom 5: P8S820, Chrom 7: CEN7, Chrom 7: O2D0812, Chrom 11: KMT2A (MLL) 3', Chrom 11: KMT2A (MLL) 5 MOLECULAR / PCR: Bone marrow, MDS/CMML Profile: Results Summary SNVs/Indels: U2AF1 S34F Pertinent Negatives: NO alterations detected in the following genes: FLT3, IDH1, IDH2, NPM1, TP53 Interpretation U2AF1 mutations can be seen in various myeloid neoplasms, and are associated with a poor prognosis in MDS and AML. The Accessioning Component, Technical Component Processing, Analysis and Professional Component of this test was completed at [facility] [place], PATIENT NAME: JUSTINLittleZionALEJANDRO FAIRACRES PATHOLOGY DATE OF : 49 REPORT #: [id number] PHYSICIAN: CRIS PATHOLOGY PCP: CHERYL CELIS MD REPORT IS CONFIDENTIAL AND NOT TO BE RELEASED WITHOUT AUTHORIZATION [facility] [address] [place], [place] [address] [place] / [address] / [phone] / CLIA # [id number] / Field Account Director(s): Sebastian Mccauley M.D. Analysis Code(s): [id number] Interpretation Code(s): [id number] The performance characteristics of this test have been determined by the performing laboratory. This test has not been approved by the FDA. The FDA has determined such clearance or approval is not necessary. This laboratory is CLIA certified to perform high complexity clinical testing. (Accession/CaseNo: [id number]) Images that may be included within this report are representative personal service of the patient but not all testing in its entirety and should not be used to render a result. GROSS DESCRIPTION: Two specimens are received in two containers A. The specimen, labeled and designated "Gawf, bone marrow core biopsy," is received in formalin and consists of two red-bautista cores of bone (0.9-1.4 cm in length by up to 0.2 cm in diameter). The specimen is submitted entirely in cassette (A1) following decalcification in Immunocal. B. The specimen, labeled and designated "Gawf, bone marrow clot biopsy," is received in formalin and consists of a portion of red-brown clot-like material (2.0 x 1.0 x 0.3 cm in aggregate). The specimen is submitted entirely in cassette (B1). VB (under the direct supervision of a pathologist) The Gross Description was prepared using a voice recognition system. The report was reviewed for accuracy; however, sound-alike word errors, addition and/or deletions may occur. If there is any question about this report, please contact Client Services. ADDITIONAL NOTES: Immunohistochemical and/or in situ hybridization studies if performed in this case included appropriate positive controls that reacted as expected. This test was developed and its performance characteristics determined by [facility] [facility]. It has not been cleared or approved by the U.S. Food and Drug Administration. The FDA has determined that such clearance or approval is not necessary. This test is used for clinical purposes. It should not be regarded as investigational or for research. [facility] is certified under the Clinical Laboratory Improvement Amendments of 1988 (CLIA) as qualified to perform high complexity clinical laboratory testing. PATIENT NAME: ALEJANDRO BOWERS PATHOLOGY DATE OF : 49 REPORT #: [id number] PHYSICIAN: CRIS JOHN PCP: CHERYL CELIS MD REPORT IS CONFIDENTIAL AND NOT TO BE RELEASED WITHOUT AUTHORIZATION [address] [address] Signed In this case, certain antibodies were performed by both immunohistochemistry and flow cytometry analysis because flow cytometry analysis did not fully explain all the light microscopic findings. Immunohistochemistry aided in the analysis. Both methods are deemed medically necessary in this case. This test was developed and its performance characteristics determined by [facility] [facility] It has not been cleared or approved by the US Food and Drug Administration. The [employer] probe vendor for this study was [employer]. This test was developed and its performance characteristics determined by [employer] [facility]. It has not been cleared or approved by the US Food and Drug Administration. The FDA does not require this test to go through premarket FDA review. This test is used for clinical purposes. It should not be regarded as investigational or for research. This laboratory is certified under the Clinical Laboratory Improvement Amendments (CLIA) as qualified to perform high complexity clinical laboratory testing. PERFORMING LABORATORY: The technical preparation was performed by [facility], [address] [place] [address] (CLIA#: [id number]). Professional interpretation was performed by [facility], [address] [place], [place] [address] (CLIA#: [id number]). The technical component of the FISH testing was performed by [facility], [address] [place] [address] (CLIA#: [id number]). Professional interpretation was performed by [facility], [address] [facility], [place] [address] (CLIA#: [id number]). FINAL DIAGNOSIS OF FISH STUDY PERFORMED BY: Regine Mcneil MD, Pathologist Sep 17 2024 4:01PM Technical component was performed by [facility], [address] [place] [address] (CLIA# [id number]). Professional interpretation was performed by [facility] - [facility], [address] [place] [id number] (CLIA#: [id number]). IMAGES: A: [id number] A: [id number] PATIENT NAME: ALEJANDRO BOWERS PATHOLOGY DATE OF : 49 REPORT #: [id number] PHYSICIAN: CRIS PATHOLOGY PCP: CHERYL CELIS MD REPORT IS CONFIDENTIAL AND NOT TO BE RELEASED WITHOUT AUTHORIZATION [facility] [address] [facility] [place] [address] Signed A: [id number] A: [id number]_002 A: [id number] 1R3G_001 A: [id number]_002 Diagnostician: Dion Glez MD Pathologist Electronically Signed 09/22/2024 Copies: ~ PATIENT NAME: ALEJANDRO BOWERS PATHOLOGY DATE OF : 49 REPORT #: [id number] PHYSICIAN: CRIS PATHOLOGY PCP: CHERYL CELIS MD REPORT IS CONFIDENTIAL AND NOT TO BE RELEASED WITHOUT AUTHORIZATION
== END 2024-09-09 13:15 | disposition home or self-care (01) ==
LOC: DS 10:15 → OPS 10:15 → DS 12:00 → OPS 12:00
PROVIDERS: ATTEND Specialist
PROC: 079T3ZX Drainage of Bone Marrow, Percutaneous Approach, Diagnostic (ICD-10-PCS; 2024-09-09)
PROC: 07DR0ZX Extraction of Iliac Bone Marrow, Open Approach, Diagnostic (ICD-10-PCS; principal; 2024-09-09 12:00)
DX: D46.B Refractory cytopenia with multilineage dysplasia and ring sideroblasts (principal); D59.9 Acquired hemolytic anemia, unspecified; E27.3 Drug-induced adrenocortical insufficiency; D69.41 Evans syndrome; D69.3 Immune thrombocytopenic purpura; Z88.1 Allergy status to other antibiotic agents; Z91.010 Allergy to peanuts
CPT/HCPCS: 01112; 36415; 85007; 85025; J2003; J2704; J7121

== ENCOUNTER 2024-11-25 10:09 | Day surgery (SDC) | payer OTHER ==
[~2024-11-25] VITALS: Ht 177.8 cm; Wt 78.2 kg
[~2024-11-25 10:09] MED LIST changes: +CEFPODOXIME PR100 MG PO; +DEXTROAMPHETAMIN5 MG PO; +SERTRALINE HCL25 MG PO
[2024-11-25 10:49] VITALS: BP 124/65
[2024-11-25] MEDS ORDERED: ZYLOPRIM100 MG PO (10:49)
[2024-11-25 10:51] LABS: HEMATOCRIT 18.4 % (35.0-50.0); HEMOGLOBIN 6.5 g/dL (12.0-18.0); MCH 30.1 (27-36); MCHC 35.2 g/dl (30-36); MCV 85.7 fl (81-99); RBC 2.15 M/ul (4.3-5.7); RDW 18.3 (10.5-15.0)
[2024-11-25 10:56] LABS: PLATELET COUNT 13 K/uL (140-440)
[2024-11-25 11:06] LABS: LYMPHOCYTES, MANUAL DIFF 70; MONOCYTES, MANUAL DIFF 5; NEUTROPHILS, MANUAL DIFF 25
[2024-11-25 11:13] LABS: BASOPHILS, MANUAL DIFF 0; EOSINOPHILS, MANUAL DIFF 0
[2024-11-25 11:14] LABS: LYMPHOCYTES, ABSOLUTE 0.5; NEUTROPHILS, ABSOLUTE 0.2
[2024-11-25 11:15] LABS: BASOPHILS, ABSOLUTE 0 %; EOSINOPHILS, ABSOLUTE 0; MONOCYTES, ABSOLUTE 0
[2024-11-25] MEDS ORDERED: propofoL 200 MG/20 ML VIAL ONE (12:14)
[2024-11-25] MEDS ORDERED: LIDOCAINE HCL 2% 5 ML SDV ONE (12:14)
[2024-11-25 13:51] VITALS: BP 118/74
--- NOTE | 2024-11-25 14:06 | NUR ---
11/25/24 1406 Lianne Rubio 1240 PT ARRIVED IN PACU IN PRONE POSITION. 1250 RESTING. REU. 1300 SITTING UP IN BED TALKING TO STAFF. 1305 DC INSTRUCTIONS GIVEN. ALL QUESTIONS ANSWERED. 1315 LEFT VIA W/C.
--- NOTE | 2024-11-27 17:41 | PATH ---
[facility] [address] [facility] [place], [place] [address] Signed SPECIMEN(S): A BONE MARROW - CORE SPECIMEN(S): B BONE MARROW - ASPIRATION SPECIMEN(S): C FLOW CYTOMETRY, BM EDTA ASP CLINICAL HISTORY: MDS and progressive pancytopenia. Evaluate for thumb formation to acute myelogenous leukemia. Acquired hemolytic anemia, unspecified. Thrombocytopenia. Neutropenia. DIAGNOSIS SUMMARY: Peripheral blood - Marked normocytic normochromic anemia. - Marked neutropenia. - Marked thrombocytopenia Bone marrow, aspirate, cell block of clotted aspirate, core biopsy: - Hypercellular bone marrow with megakaryocytic hyperplasia and atypical megakaryocyte morphology. - No increase in myeloblast. - Moderate increase in bone marrow reticulin fibrosis. 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 The aspirate is dry tap with no bone marrow particles present for morphologic evaluation of dyspoiesis. The core biopsy demonstrates hypercellular bone marrow with atypical megakaryocytes morphology with no increase in blasts identified by immunohistochemical stains. Concurrent flow cytometry analysis also demonstrates no increase of blasts. In comparison to previous bone marrow study ([id number], 09/10/2024), the morphology is similar with no significant increase in blasts identified. Findings are consistent with MDS with increased reticulin fibrosis. Cytogenetics, FISH panel for MDS and myeloid NGS panel are pending and will be reported in an addendum PERIPHERAL BLOOD: Hemogram ([facility], 11/25/2024): WBC 0.7K/UL, RBC 2.15M/UL, hemoglobin 6.5 g/DL, hematocrit 18.4%, MCV 85.7 FL, MCH 30.1 PG, MCHC 35.2 g/DL, RDW 18.3%, platelets 13K/UL. Peripheral blood differential: 25% neutrophils, 17% lymphocytes, 5% monocytes. PATIENT NAME: ALEJANDRO BOWERS PATHOLOGY DATE OF : 49 REPORT #: [id number] PHYSICIAN: CRIS PATHOLOGY PCP: CHERYL CELIS MD REPORT IS CONFIDENTIAL AND NOT TO BE RELEASED WITHOUT AUTHORIZATION [facility] [address] [place], [place] [address] Signed Absolute neutrophils count 0.2K/UL Review of peripheral blood smear and CBC data demonstrate that RBCs are decreased in number with marked normocytic normochromic anemia present. Occasional spherocytes and schistocytes are encountered. WBCs are markedly decreased in number with marked neutropenia present. The neutrophils show unremarkable morphology. No immature cells/blasts are seen. The platelets are markedly decreased in number with unremarkable morphology. BONE MARROW: Bone marrow aspirate smears: The bone marrow aspirate smears are dry tap with no bone marrow particles present. Smears are suboptimal for morphologic evaluation. Bone marrow core biopsy and clot section: The bone marrow core biopsy demonstrate hypercellular bone marrow for age with and averaging cellularity up to 80%. Variable areas of cellularity is noted with areas showing increased fibrosis noted. Increased number of megakaryocytes is evident with many showing dysplastic features. There are no lymphoid aggregates, granulomas or metastatic tumor cells present. The clot section is composed mostly of blood. Special stains: Performed with appropriately reactive control and show the following results: Iron (aspirate smears): Absent, no bone marrow particles. Iron (B1) storage iron present in focal areas, no ring sideroblasts identified. Reticulin (block A): Moderate increase in bone marrow reticulin fibrosis (MF 2 ). Immunohistochemical stains: Performed on block A1 with appropriately reactive control and show the following results: CD34: No increase in blasts. CD117: Highlights scattered mast cells. CD71: Highlights erythroid precursors Myeloperoxidase: Highlights myeloid. Factor VIII: Highlights numerous atypical megakaryocytes. CD25: Negative. Tryptase: Highlights scattered mast cells. PAX5: Negative. FLOW CYTOMETRY: Bone marrow aspirate, flow cytometry: 3% myeloblasts with aberrant marking. Atypical myeloid maturation. PATIENT NAME: ALEJANDRO BOWERS PATHOLOGY DATE OF : 49 REPORT #: [id number] PHYSICIAN: CRIS PATHOLOGY PCP: CHERYL CELIS MD REPORT IS CONFIDENTIAL AND NOT TO BE RELEASED WITHOUT AUTHORIZATION [facility] [address] [place], [place] [address] Signed No atypical lymphoid cell population. See Comment. COMMENT: Patient history of high grade MDS and B-cell lymphoma is noted. 3.0% blasts by CD34/117 with aberrant CD15 DIM (minor subset). Myeloid show decreased CD10 expression and atypical maturation in the CD13 vs CD16 plot are observed. The monocytes express increased CD15 and some decreased CD14. No aberrant T-cell phenotype detected by flow. The B-cells are essentially absent. Morphologic correlation is recommended for a more accurate determination of blast burden. Please also correlate with clinical and genetic findings for full interpretation. FLOW CYTOMETRY ANALYSIS: FLOW DIFFERENTIAL (% Total CD45 vs. SSC gating): Myeloid 23%; Lymphoid 45%; Monocyte 3%; Dim CD45/Blast: 3.0%. Cell Count: 9.6 x 10*2/uL. POPULATION ANALYSIS: BLASTS: Analysis of the dim CD45 gate demonstrates 3.0% myeloblasts by CD34/CD117 with aberrant CD15 DIM (minor subset). A discrete hematogone population is not detected. LYMPHOID CELLS: The lymphocyte gate comprises 45% of total events and includes 89% T-cells with a CD4:CD8 ratio of 0.8:1 and otherwise normal boudreaux T-cell antigen expression. B-cells are essentially absent. The remainders are NK-cells. MYELOID CELLS: The myeloid population comprises 23% of the total events. Decreased CD10 expression and atypical maturation in the CD13 vs CD16 plot are observed. MONOCYTES: The monocyte population comprises 3% of the total events. Monocytes are not increased. Increased CD15 expression and some decreased CD14 expression are observed. PLASMA CELLS: 0.7% plasma cells are detected in the screening gate neg-dimCD45/CD38. Plasma cells are CD45 dim and positive for CD19. ANTIBODIES USED: KAPPA, LAMBDA, CD20, CD10, CD19, CD23, CD38, CD16, CD56, CD8, CD5, CD2, CD4, CD7, CD3, CD14, CD33, CD13, HLADR, CD34, CD117, CD15, CD45: TOTAL ANTIBODIES USED: 23. JNB FINAL DIAGNOSIS PERFORMED BY: Natalie Ward MD, Nov 26 2024 5:07PM CYTOGENETICS: Pending PATIENT NAME: ALEJANDRO BOWERS PATHOLOGY DATE OF : 49 REPORT #: [id number] PHYSICIAN: CRIS PATHOLOGY PCP: CHERYL CELIS MD REPORT IS CONFIDENTIAL AND NOT TO BE RELEASED WITHOUT AUTHORIZATION [facility] [address] [place] [place], [place] [address] Signed FISH ANALYSIS: Pending MOLECULAR / PCR: Pending GROSS DESCRIPTION: Two specimens are received in two containers A. The specimen, labeled and designated "Gawf, bone marrow core biopsy," is received in formalin and consists of one bautista cylindrical core of bone that is 2.4 cm long and 0.2 cm in diameter. After decalcification in Immunocal the specimen is entirely submitted in (A1). B. The specimen, labeled and designated "Gawf, bone marrow clot," is received in formalin and consists of a 2.0 x 0.7 x 0.6 cm aggregate of red brown clot material. Entirely submitted in (B1). JS (under the direct supervision of a pathologist) The Gross Description was prepared using a voice recognition system. The report was reviewed for accuracy; however, sound-alike word errors, addition and/or deletions may occur. If there is any question about this report, please contact Client Services. ADDITIONAL NOTES: Immunohistochemical and/or in situ hybridization studies if performed in this case included appropriate positive controls that reacted as expected. This test was developed and its performance characteristics determined by [facility]. It has not been cleared or approved by the U.S. Food and Drug Administration. The FDA has determined that such clearance or approval is not necessary. This test is used for clinical purposes. It should not be regarded as investigational or for research. [facility] is certified under the Clinical Laboratory Improvement Amendments of 1988 (CLIA) as qualified to perform high complexity clinical laboratory testing. In this case, certain antibodies were performed by both immunohistochemistry and flow cytometry analysis because flow cytometry analysis did not fully explain all the light microscopic findings. Immunohistochemistry aided in the analysis. Both methods are deemed medically necessary in this case. This test was developed and its performance characteristics determined by [facility]. It has not been cleared or approved by the [place] Food and PATIENT NAME: ALEJANDRO BOWERS PATHOLOGY DATE OF : 49 REPORT #: [id number] PHYSICIAN: CRIS JOHN PCP: CHERYL CELIS MD REPORT IS CONFIDENTIAL AND NOT TO BE RELEASED WITHOUT AUTHORIZATION [facility] [address] [place] [id number] Signed Drug Administration. The FDA does not require this test to go through premarket FDA review. This test is used for clinical purposes. It should not be regarded as investigational or for research. This laboratory is certified under the Clinical Laboratory Improvement Amendments (CLIA) as qualified to perform high complexity clinical laboratory testing. PERFORMING LABORATORY: The technical preparation was performed by [facility], [address] [place] [address] (CLIA#: [id number]). Professional interpretation was performed by [facility], [address] [place] [address] (CLIA# [id number]). [place] [address] (CLIA# [id number]). Professional interpretation was performed by [facility] [place] [address] (CLIA#: [id number]). IMAGES: [id number]: [id number]: [id number] Diagnostician: Natalie Ward MD Pathologist Electronically Signed 11/27/2024 Copies: ~ PATIENT NAME: ROBINSONALEJANDRO PATHOLOGY DATE OF : 49 REPORT #: [id number] PHYSICIAN: CRIS JOHN PCP: CHERYL CELIS MD REPORT IS CONFIDENTIAL AND NOT TO BE RELEASED WITHOUT AUTHORIZATION
== END 2024-11-25 13:15 | disposition home or self-care (01) ==
LOC: OPS 10:09 → DS 10:09 → OPS 12:00
PROVIDERS: ATTEND Specialist
DX: D46.9 Myelodysplastic syndrome, unspecified (principal); D59.9 Acquired hemolytic anemia, unspecified; D69.6 Thrombocytopenia, unspecified; D70.9 Neutropenia, unspecified; E27.3 Drug-induced adrenocortical insufficiency; Z88.8 Allergy status to other drugs, medicaments and biological substances; Z91.010 Allergy to peanuts
CPT/HCPCS: 01112; 36415; 85007; 85025; 85060; J2003; J2704; J7121

== ENCOUNTER 2025-04-01 09:49 | Inpatient (IN) | payer OTHER, MEDICARE ==
[~2025-04-01] VITALS: Ht 177.8 cm; Wt 75.7 kg
[~2025-04-01 09:49] MED LIST changes: -CEFPODOXIME PR100 MG PO; +DEXTROAMPHETAMIN5 M1 PO; -DEXTROAMPHETAMIN5 MG PO; -IBLOOD GLUCOSE TEST STRIP 1 EA TEST VI PRN; -LACTATED RINGER'S 1,000 ML IV SCH; -LIDOCAINE HCL 1% 5 ML SDV INJ ONE; +LIPITOR10 MG PO; -LIPITOR40 MG PO; -TESTIM5 GM TD; +TESTOSTERONE TOP; +VENCLEXTA100 MG PO; +ZARXIO480 MCG/0. SUB-Q; +ZYLOPRIM100 MG PO
[2025-04-01 10:20] LABS: HEMATOCRIT 28.4 % (40.1-51.0); MCH 26.6 PG (25.7-32.2); MCHC 31.7 g/dL (32.3-36.5); RBC 3.38 M/uL (4.63-6.08)
[2025-04-01 10:21] LABS: PLATELET COUNT 43 K/uL (163-337)
[2025-04-01 10:30] LABS: INR 1.13 (0.80-1.30); PARTIAL THROMBOPLASTIN TIME 22.7 Sec (22.9-41.3); PROTIME 13.8 Sec (11.2-14.2)
[2025-04-01 10:34] LABS: ALBUMIN/GLOBULIN RATIO 1.03 (1.1-2.4); ANION GAP 13.2 (7-21); BILIRUBIN, TOTAL 0.9 mg/dL (0.2-1.0); BUN/CREATININE RATIO 22.95 (6.0-28.6); CREATININE, SERUM 1.22 mg/dL (0.70-1.30); POTASSIUM 4.2 mmol/L (3.5-5.1); PROTEIN, TOTAL 7.9 g/dL (6.4-8.2)
[2025-04-01 10:45] LABS: BANDS, MANUAL DIFF 8; LYMPHOCYTES, MANUAL DIFF 52; MONOCYTES, MANUAL DIFF 6; NEUTROPHILS, MANUAL DIFF 32
[2025-04-01 10:46] LABS: BILIRUBIN, URINE NEGATIVE (negative); BLOOD/HGB, URINE NEGATIVE (Negative); KETONE, URINE TRACE (Negative); LEUK ESTERASE, URINE NEGATIVE (negative); NITRITE, URINE NEGATIVE (negative); PH, URINE 6.5 (5-7)
[2025-04-01 13:25] VITALS: BP 144/67
--- NOTE | 2025-04-01 13:30 | NUR ---
PT ARRIVES TO [facility]LO[facility], AMBULATES FROM WHEELCHAIR TO BED W/O DIFFICULTY OR ASISSTANCE. PT ABLE TO ANSWER ADMISSION QUESTIONS INDEPENDENLTY W/O DIFFICULTY. NIH SCORE OF 2 FOR R SIDED FACIAL DROOP WELL MILDLY SLURRED SPEECH. PT DENIES PAIN OR SOB, STATES HE EXPERIENCES CHRONIC NAUSEA D/T CANCER TREATMENT. PT EATS REGULAR DIET LUNCH TRAY AND DRINKS THIN LIQUIDS INDEPENDENLTY W/O DIFFICULTY. TELE #[address] PER ORDER. PT STATES NO NEEDS AT THIS TIME, CALL LIGHT WITHIN REACH.
[2025-04-01] MEDS ORDERED: ACETAMINOPHEN 325 MG TAB PO PRN (14:00)
[2025-04-01] MEDS ORDERED: ondansetron HCL 4 MG/2 ML VIAL IV PRN (14:00)
[2025-04-01] MEDS ORDERED: SERTRALINE HCL 25 MG TAB PO SCH (14:40)
[2025-04-01] MEDS ORDERED: ACYCLOVIR 400 MG TAB PO SCH (14:45)
[2025-04-01] MEDS ORDERED: VENTOLIN HFA18 GM INH (14:55)
[2025-04-01] MEDS ORDERED: ALLOPURINOL300 MG PO (14:58)
--- NOTE | 2025-04-01 15:00 | NUR ---
UR CLINICAL REVIEW: KHOA, MEETS INPT FOR TIA DYSARTHRIA, CONTINUED WORKUP NEEDED PAST OBSERVATION PERIOD. [facility] INPT 04/01/2025 @ 1217 ORDER MATCHES REG AUTH PENDING, WILL SEND CLINICALS VIA RIGHTFAX DC PLAN PENDING FURTHER EVAL WITH THERAPIES 04/03/2025
--- NOTE | 2025-04-01 15:30 | NUR ---
INTO SEE PATIENT. PERSONAL HEALTH INFORMATION REVIEWED. PATIENT LIVES AT HOME WITH ADULT DAUGHTER. PATIENT HAS ONE STEP INTO HOME. DENIES DIFFCULTY DOING THEM. DENIES ANY DME. DRIVES AT BASELINE. DENIES ANY DIFFCULTY PAYING UTILITIES OR OBTAINING FOOD. DAUGHTER WILL GET HIM AT TIME OF DISCHARGE. NO FUTHER CM NEEDS.
[2025-04-01 15:34] VITALS: BP 144/67
[2025-04-01] MEDS ORDERED: MK-790 MCG PO (16:37)
[2025-04-01] MEDS ORDERED: DAILY VITE1 EAC1 PO (16:40)
[2025-04-01] MEDS ORDERED: [UNRECOGNIZED DRUG - OTHER] PO (16:40)
[2025-04-01] MEDS ORDERED: ONDANSETRON ODT4 MG PO (16:41)
[2025-04-01] MEDS ORDERED: REBLOZYL75 MG SUB-Q (16:44)
--- NOTE | 2025-04-01 16:47 | NUR ---
MED REC COMPLETE
--- NOTE | 2025-04-01 17:36 | NUR ---
VISITORS AT THE BEDSIDE. CALL LIGHT WITHIN REACH.
[2025-04-01] MEDS ORDERED: HYDROCORTISONE 10 MG TAB PO SCH (18:00)
[2025-04-01] MEDS ORDERED: FILGRASTIM-SNDZ 480 MCG/0.8 ML SYR SUB-Q SCH (18:30)
[2025-04-01 18:33] VITALS: BP 146/74
[2025-04-01 18:41] VITALS: BP 146/74
--- NOTE | 2025-04-01 19:24 | NUR ---
RECEIVED REPORT FROM BEATRIS ROBLES. CALL LIGHT IN REACH
[2025-04-01 20:16] VITALS: BP 154/71
[2025-04-01 20:17] VITALS: BP 154/71
--- NOTE | 2025-04-01 20:17 | NUR ---
ORDER RUNNER OBTAINED VITALS AND I&O. ICE WATER REFILLED AND PT ASKED FOR A TOOTHBRUSH AND TOOTH PASTE. PT REQUESTING ZOFRAN. RN NOTIFED. PT STATES NO FURTHER NEEDS AT THIS TIME. CALL LIGHT WITHIN REACH.
--- NOTE | 2025-04-01 20:30 | NUR ---
PT C/O UPSET STOMACH, FEELING OF NAUSEAS. MEDICATED WITH ZOFRAM 4MG IV. PT IN BED, ROOM AIR, ALERT AND ORIENTED, NO OTHER REQUESTS
--- NOTE | 2025-04-01 21:17 | NUR ---
ASSESSMENT. PT REPORTS NAUSEA IMPROVED AFTER ZOFRAN, GIVEN ITALO CRACKERS AND CRANBERRY JUICE. NO OTHER NEEDS, CALL LIGHT INREACH
--- NOTE | 2025-04-01 23:11 | NUR ---
PT ALERT IN BED, NO NEEDS, CALL LIGHT INREACH
--- NOTE | 2025-04-02 01:05 | NUR ---
PT RESTING IN BED, OBSERVED PT REPOSITION, RISE AND FALL OF CHEST NOTED. CALL LIGHT IN REACH
[2025-04-02 01:34] VITALS: BP 122/67
--- NOTE | 2025-04-02 01:36 | NUR ---
WIND ENERGY TECHNICIAN OBTAINED VITALS AND I&O. PT UP TO BATHROOM TO VOID AND IS NOW BACK IN BED. PT STATES NO FURTHER NEEDS AT THIS TIME. CALL LIGHT WITHIN REACH.
[2025-04-02] MEDS ORDERED: HYDROCORTISONE 10 MG TAB PO SCH ×2 (02:00→12:00)
--- NOTE | 2025-04-02 02:40 | NUR ---
PT RESTING IN BED WITH EYES CLOSED, RISE AND FALL OF CHEST OBSERVED. CALL LIGHT IN REACH
--- NOTE | 2025-04-02 03:15 | NUR ---
PT RESTING IN BED WITH EYES CLOSED, RISE AND FALL OF CHEST OBSERVED. CALL LIGHT IN REACH
--- NOTE | 2025-04-02 05:14 | NUR ---
PT RESTING IN BED, ALERT. NO NEEDS, [facility]
[2025-04-02 05:28] LABS: HEMATOCRIT 26.3 % (40.1-51.0); HEMOGLOBIN 8.4 g/dL (13.7-17.5); MCH 26.5 PG (25.7-32.2); MCHC 31.9 g/dL (32.3-36.5); RBC 3.17 M/uL (4.63-6.08)
[2025-04-02 05:36] LABS: PLATELET COUNT 37 K/uL (163-337)
[2025-04-02 05:41] VITALS: BP 118/50
[2025-04-02 05:43] LABS: BANDS, MANUAL DIFF 2; EOSINOPHILS, MANUAL DIFF 1; LYMPHOCYTES, MANUAL DIFF 56; MONOCYTES, MANUAL DIFF 7; NEUTROPHILS, MANUAL DIFF 34
--- NOTE | 2025-04-02 05:44 | NUR ---
POWER TOOL REPAIRER OBTAINED VITALS AND I&O. PT STATES NO NEEDS AT THIS TIME. CALL LIGHT WITHIN REACH.
[2025-04-02 05:45] LABS: ANION GAP 12.6 (7-21); BUN/CREATININE RATIO 19.81 (6.0-28.6); CALCIUM 8.8 mg/dL (8.5-10.1); CHOLESTEROL/HDL RATIO 3.5; CREATININE, SERUM 1.06 mg/dL (0.70-1.30); MAGNESIUM 2.1 mg/dL (1.8-2.4); POTASSIUM 4.6 mmol/L (3.5-5.1)
--- NOTE | 2025-04-02 06:14 | NUR ---
CRITICAL LAB: PLT 37 (DOWN FROM 43). NOTIFIED MD, NO NEW ORDERS.
[2025-04-02 09:59] VITALS: BP 113/63
[2025-04-02 10:00] VITALS: BP 122/65
--- NOTE | 2025-04-02 10:02 | NUR ---
PATIENT IS IN BED AT THIS TIME, [employer] SET UP EVERYTHING FOR A SHOWER THIS MORNING, PATIENT SHOWERED, I GOT FRESH SHEETS AND A GOWN FOR HIM. [employer] CHARTED VITALS AND I&O'S, PATIENT ALSO ASKED FOR BEATRIS NAVARRO NOTIFIED. CALL LIGHT WITH IN REACH AND NOTHING ELSE NEEDED AT THIS TIME.
--- NOTE | 2025-04-02 10:10 | NUR ---
Patient awake in bed, no acute distess, alert/oriented x3. Patient requesting nausea medication, he states he gets nauseated daily at home. Patient showered and worked with physical therapy this morning, per their report he did well. No further needs, personal supplies and call light within reach.
--- NOTE | 2025-04-02 10:11 | NUR ---
INTO SEE PATIENT. PATIENT WILL GO HOME WITH DAUGHTER AT TIME OF DISCHARGE NO FUTHER QUESTIONS OR CM NEEDS.
--- NOTE | 2025-04-02 11:12 | EKG ---
[facility] [address] [facility] [place] [address] Signed Normal sinus rhythm T wave abnormality, consider inferolateral ischemia Abnormal ECG When compared with ECG of 23-JUN-2024 15:09, No significant change was found Confirmed by Aj Reveles MD ([id number]) on 04/02/2025 11:12:35 AM Electronically Signed By: AJ REVELES MD 04/02/25 1112 PATIENT NAME: JUSTINLittleZionALEJANDRO Electrocardiogram DATE OF : 49 PHYSICIAN: AJ REVELES MD REPORT #: [id number] REPORT IS CONFIDENTIAL AND NOT TO BE RELEASED WITHOUT AUTHORIZATION
--- NOTE | 2025-04-02 11:19 | NUR ---
VISITED DURING SPIRITUAL CARE ROUNDS. PT APPEARED TO BE SLEEPING. DID NOT DISTURB. PROVIDED PRAYER.
[2025-04-02] MEDS ORDERED: PHARMACY RENAL DOSE ADJUSTMENT 1 DOSE MISC PO SCH (12:00)
[2025-04-02] MEDS ORDERED: CLOPIDOGREL BISULFATE 75 MG TAB PO SCH (12:28)
[2025-04-02 12:30] VITALS: BP 122/65
[2025-04-02] MEDS ORDERED: PLAVIX75 MG PO (12:40)
[2025-04-02] MEDS ORDERED: ASPIRIN81 MG PO (13:01)
[2025-04-02] MEDS ORDERED: ATORVASTATIN 40 MG TAB PO SCH (17:00)
== END 2025-04-02 13:15 | disposition home or self-care (01) | DRG 92 ==
LOC: ED 09:49 → MS 12:39
PROVIDERS: Emergency Medicine; ADMIT Student in an Organized Health Care Education/Training Program; ATTEND Student in an Organized Health Care Education/Training Program
DX: R47.1 Dysarthria and anarthria (principal); D59.10 Autoimmune hemolytic anemia, unspecified; D61.818 Other pancytopenia; E27.40 Unspecified adrenocortical insufficiency; G95.89 Other specified diseases of spinal cord; D69.3 Immune thrombocytopenic purpura; I10 Essential (primary) hypertension; M48.02 Spinal stenosis, cervical region; D46.9 Myelodysplastic syndrome, unspecified; D69.6 Thrombocytopenia, unspecified; Z88.1 Allergy status to other antibiotic agents; Z91.010 Allergy to peanuts; M47.812 Spondylosis without myelopathy or radiculopathy, cervical region; F39 Unspecified mood [affective] disorder; Z85.72 Personal history of non-Hodgkin lymphomas; Z98.890 Other specified postprocedural states; Z79.899 Other long term (current) drug therapy
CPT/HCPCS: 36415; 70450; 70496; 70498; 70551; 71045; 72141; 80048; 80053; 80061; 81003; 83036; 83735; 85025; 85610; 85730; 93005; 93010; 93306; A9270; J2405; Q9967